=== PATIENT | male | born 1975 | race Caucasian/White ===

== ENCOUNTER 2025-07-06 11:33 | Emergency (ER) | payer SELFPAY ==
[~2025-07-06] VITALS: Ht 172.7 cm; Wt 84.0 kg
[2025-07-06 11:37] VITALS: O2SAT 99
[2025-07-06 14:29] VITALS: BP 142/82; PULSE 74; RESP 16; TEMP 37; O2SAT 98
== END 2025-07-06 14:31 | disposition home or self-care (01) ==
LOC: ER 11:42
DX: T17.928A Food in respiratory tract, part unspecified causing other injury, initial encounter (principal); R05.9 Cough, unspecified; W44.F3XA Food entering into or through a natural orifice, initial encounter; Y93.89 Activity, other specified; Y92.89 Other specified places as the place of occurrence of the external cause; Y99.8 Other external cause status
CPT/HCPCS: 71045; 99283